=== PATIENT | female | born 1950 | race Caucasian/White ===

== ENCOUNTER 2017-09-30 08:31 | Day surgery (SDC) | payer MEDICARE, OTHER ==
[~2017-09-30 08:31] MED LIST: PROPOFOL 500 MG/50 ML EMU IV ONE
[2017-09-30 10:30] VITALS: TEMP 97.8
[2017-09-30 11:01] VITALS: RESP 20
[2017-09-30 11:13] VITALS: PULSE 59; O2SAT 97
[2017-09-30 11:18] VITALS: BP 122/72
== END 2017-09-30 11:25 | disposition home or self-care (01) | DRG 392 ==
LOC: SURG 08:31
PROVIDERS: ATTEND Internal Medicine Gastroenterology
DX: K21.9 Gastro-esophageal reflux disease without esophagitis (principal); Q39.9 Congenital malformation of esophagus, unspecified; R93.3 Abnormal findings on diagnostic imaging of other parts of digestive tract; K90.0 Celiac disease; R07.9 Chest pain, unspecified; R19.7 Diarrhea, unspecified; K22.2 Esophageal obstruction; K44.9 Diaphragmatic hernia without obstruction or gangrene; L53.8 Other specified erythematous conditions; K26.9 Duodenal ulcer, unspecified as acute or chronic, without hemorrhage or perforation; K29.50 Unspecified chronic gastritis without bleeding; K22.70 Barrett's esophagus without dysplasia
CPT/HCPCS: J2704

== ENCOUNTER 2017-12-12 10:21 | Emergency (ER) | payer MEDICARE, OTHER ==
[2017-12-12 10:29] VITALS: RESP 12; TEMP 97.6; O2SAT 100
[2017-12-12 13:33] VITALS: BP 174/84; PULSE 68
== END 2017-12-12 11:50 | disposition home or self-care (01) | DRG 149 ==
LOC: ED 10:21
DX: R42 Dizziness and giddiness (principal)
CPT/HCPCS: 70450; 93005; 99283; 99284

== ENCOUNTER 2018-01-02 04:06 | Emergency (ER) | payer MEDICARE, OTHER ==
[2018-01-02] MEDS ORDERED: NITROGLYCERIN 0.4 MG TAB SL PRN (04:08)
[2018-01-02] MEDS ORDERED: ASPIRIN 81 MG CHEWABLE CTB PO STA (04:08)
[2018-01-02] MEDS ORDERED: SODIUM CHLORIDE 0.9% FLUSH 10 ML SOL IV PRN (04:08)
[2018-01-02 04:38] LABS: BASOPHILS % (AUTO) 2 % (0-3); EOSINOPHILS % (AUTO) 6 % (0-9); HEMATOCRIT 41 % (35-47); HEMOGLOBIN 13.6 gm/dl (12.0-15.5); LYMPHOCYTES % (AUTO) 17.7 % (10-50); MEAN CORPUSCULAR HEMOGLOBIN 28.7 pg (27.0-32.0); MEAN CORPUSCULAR HGB CONC 32.9 gm/dl (32.0-36.0); MEAN CORPUSCULAR VOLUME 87 fL (81-99); NEUTROPHILS % (AUTO) 65.8 % (37-80)
[2018-01-02 04:39] VITALS: BP 172/77; PULSE 75; TEMP 97.8; O2SAT 99
[2018-01-02 04:57] LABS: BLOOD UREA NITROGEN 15 mg/dl (7-18); CALCIUM 8.8 mg/dl (8.5-10.1); CARBON DIOXIDE 26.9 mEq/L (21-32); CHLORIDE 102 mMol/L (98-107); CREATINE KINASE 90 U/L (26-192); CREATININE 0.96 mg/dl (0.60-1.00); GLUCOSE 119 mg/dl (74-106); POTASSIUM 3.1 mMol/L (3.5-5.1); SODIUM 140 mMol/L (136-145); TROP I < 0.017 ng/ml (0.000-0.056)
[2018-01-02] MEDS ORDERED: POTASSIUM CHLORIDE 10 MEQ TER PO ONE (05:38)
[2018-01-02] MEDS ORDERED: POTASSIUM CHLORIDE 10 MEQ TER ONE (05:40)
== END 2018-01-02 06:06 | disposition home or self-care (01) | DRG 312 ==
LOC: ED 04:06
DX: R55 Syncope and collapse (principal); E87.6 Hypokalemia
CPT/HCPCS: 80048; 82550; 84484; 85025; 93005; 99283; 99285; A9270-GY

== ENCOUNTER 2018-06-22 18:13 | Emergency (ER) | payer MEDICARE, OTHER ==
[2018-06-22] MEDS ORDERED: ALUMINUM/MAGNESIUM 30 ML SUS PO ONE (18:31)
[2018-06-22] MEDS ORDERED: LIDOCAINE HCL 2% (VISCOUS) 15 ML SOL MT ONE (18:31)
[2018-06-22] MEDS ORDERED: ALUMINUM/MAGNESIUM 30 ML SUS ONE (18:51)
[2018-06-22] MEDS ORDERED: LIDOCAINE HCL 2% (VISCOUS) 15 ML SOL ONE (18:51)
[2018-06-22 19:44] VITALS: TEMP 96.6
[2018-06-22 23:07] VITALS: O2SAT 98
[2018-06-22 23:10] VITALS: BP 139/63; PULSE 66; RESP 19
== END 2018-06-22 21:31 | disposition home or self-care (01) | DRG 392 ==
LOC: ED 18:13
DX: K21.9 Gastro-esophageal reflux disease without esophagitis (principal)
CPT/HCPCS: 36415; 84484; 93005; 99283; 99284; A9270-GY

== ENCOUNTER 2018-06-27 17:39 | Emergency (ER) | payer MEDICARE, OTHER ==
[2018-06-27 18:08] VITALS: TEMP 97.6
[2018-06-27 18:28] LABS: BASOPHILS % (AUTO) 1 % (0-3); EOSINOPHILS % (AUTO) 1 % (0-9); HEMATOCRIT 42 % (35-47); LYMPHOCYTES % (AUTO) 31.1 % (10-50); MEAN CORPUSCULAR HGB CONC 33.7 gm/dl (32.0-36.0); MEAN CORPUSCULAR VOLUME 86 fL (81-99); MONOCYTES % (AUTO) 8.1 % (0-12); NEUTROPHILS % (AUTO) 58.3 % (37-80)
[2018-06-27 18:42] LABS: ALBUMIN 3.5 gm/dl (3.4-5.0); BILIRUBIN,TOTAL 0.3 mg/dl (0.2-1.0); CALCIUM 9.1 mg/dl (8.5-10.1); CARBON DIOXIDE 23.2 mEq/L (21-32); CREATININE 1.26 mg/dl (0.60-1.00); POTASSIUM 4.3 mMol/L (3.5-5.1); TOTAL PROTEIN 7.1 gm/dl (6.4-8.2)
[2018-06-27 19:31] VITALS: RESP 18
[2018-06-27] MEDS ORDERED: ALUMINUM/MAGNESIUM 30 ML SUS PO PRN (20:30)
[2018-06-27] MEDS ORDERED: LIDOCAINE HCL 2% (VISCOUS) 15 ML SOL MT ONE (20:31)
[2018-06-27] MEDS ORDERED: ALUMINUM/MAGNESIUM 30 ML SUS ONE (20:33)
[2018-06-27] MEDS ORDERED: LIDOCAINE HCL 2% (VISCOUS) 15 ML SOL ONE (20:33)
[2018-06-27 23:59] VITALS: BP 159/72; PULSE 77; O2SAT 98
== END 2018-06-27 20:50 | disposition home or self-care (01) | DRG 392 ==
LOC: ED 17:39
DX: K20.9 Esophagitis, unspecified (principal); R06.02 Shortness of breath
CPT/HCPCS: 36415; 71275; 80053; 83880; 85025; 85378; 93005; 99283; 99284; Q9967; A9270-GY

== ENCOUNTER 2018-07-02 12:10 | Emergency (ER) | payer MEDICARE, OTHER ==
[2018-07-02 12:48] VITALS: TEMP 96.7
[2018-07-02 12:53] LABS: BASOPHILS % (AUTO) 1 % (0-3); EOSINOPHILS % (AUTO) 1 % (0-9); HEMATOCRIT 43 % (35-47); HEMOGLOBIN 14.5 gm/dl (12.0-15.5); LYMPHOCYTES % (AUTO) 27.5 % (10-50); MEAN CORPUSCULAR HEMOGLOBIN 28.8 pg (27.0-32.0); MEAN CORPUSCULAR HGB CONC 33.5 gm/dl (32.0-36.0); MEAN CORPUSCULAR VOLUME 86 fL (81-99); MONOCYTES % (AUTO) 6.9 % (0-12); NEUTROPHILS % (AUTO) 63.8 % (37-80)
[2018-07-02 13:06] LABS: INR 1.01 (0.86-1.12)
[2018-07-02 13:17] LABS: ALBUMIN 3.6 gm/dl (3.4-5.0); BILIRUBIN,TOTAL 0.7 mg/dl (0.2-1.0); CARBON DIOXIDE 20.4 mEq/L (21-32); CREATININE 1.5 mg/dl (0.60-1.00); POTASSIUM 3.3 mMol/L (3.5-5.1); TOTAL PROTEIN 7.2 gm/dl (6.4-8.2)
[2018-07-02 13:18] LABS: TROP I 0.027 ng/ml (0.000-0.056)
[2018-07-02 13:33] VITALS: RESP 16
[2018-07-02 15:44] VITALS: BP 138/60; PULSE 96; O2SAT 98
== END 2018-07-02 14:56 | disposition home or self-care (01) | DRG 149 ==
LOC: ED 12:10
DX: R42 Dizziness and giddiness (principal); R06.02 Shortness of breath
CPT/HCPCS: 36415; 71045; 80053; 82550; 83880; 84484; 85025; 85610; 85730; 93005; 99283; 99284

== ENCOUNTER 2018-09-05 10:57 | Emergency (ER) | payer MEDICARE, OTHER ==
[2018-09-05] MEDS ORDERED: NITROGLYCERIN 0.4 MG TAB SL PRN (11:03)
[2018-09-05] MEDS ORDERED: SODIUM CHLORIDE 0.9% FLUSH 10 ML SOL IV PRN (11:03)
[2018-09-05] MEDS ORDERED: ASPIRIN 81 MG CHEWABLE CTB PO STA (11:03)
[2018-09-05 11:07] LABS: BASOPHILS % (AUTO) 1 % (0-3); EOSINOPHILS % (AUTO) 2 % (0-9); HEMATOCRIT 40 % (35-47); HEMOGLOBIN 13.3 gm/dl (12.0-15.5); LYMPHOCYTES % (AUTO) 24.4 % (10-50); MEAN CORPUSCULAR HEMOGLOBIN 29.4 pg (27.0-32.0); MEAN CORPUSCULAR HGB CONC 33.3 gm/dl (32.0-36.0); MEAN CORPUSCULAR VOLUME 88 fL (81-99); MONOCYTES % (AUTO) 7.3 % (0-12); NEUTROPHILS % (AUTO) 65.4 % (37-80)
[2018-09-05 11:22] LABS: INR 0.99 (0.86-1.12)
[2018-09-05 11:24] LABS: BLOOD UREA NITROGEN 16 mg/dl (7-18); CALCIUM 9.3 mg/dl (8.5-10.1); CARBON DIOXIDE 27.5 mEq/L (21-32); CHLORIDE 102 mMol/L (98-107); CREATINE KINASE 61 U/L (26-192); CREATININE 0.88 mg/dl (0.60-1.00); GLUCOSE 102 mg/dl (74-106); POTASSIUM 3.1 mMol/L (3.5-5.1); SODIUM 139 mMol/L (136-145); TROP I < 0.017 ng/ml (0.000-0.056)
[2018-09-05] MEDS ORDERED: POTASSIUM CHLORIDE 2 MEQ/ML 40 MEQ, LIDOCAINE HCL 1% MDV 2 ML in SODIUM CHLORIDE 0.9% 5... IV ONE (11:45)
[2018-09-05] MEDS ORDERED: NITROGLYCERIN 0.4 MG TAB SL ONE (11:52)
[2018-09-05] MEDS ORDERED: POTASSIUM CHLORIDE 2 MEQ/ML SOL IV ONE (11:52)
[2018-09-05] MEDS ORDERED: ASPIRIN 81 MG CHEWABLE CTB ONE (11:53)
[2018-09-05] MEDS ORDERED: LIDOCAINE HCL 1% MPF 30 SOL ONE (11:56)
[2018-09-05] MEDS ORDERED: SODIUM CHLORIDE 0.9% 1000ML 1,000 ML IV SCH (12:00)
[2018-09-05] MEDS ORDERED: LIDOCAINE HCL 2% (VISCOUS) 15 ML SOL MT ONE (13:59)
[2018-09-05] MEDS ORDERED: ALUMINUM/MAGNESIUM 30 ML SUS PO ONE (13:59)
[2018-09-05] MEDS ORDERED: ALUMINUM/MAGNESIUM 30 ML SUS ONE (14:02)
[2018-09-05] MEDS ORDERED: LIDOCAINE HCL 2% (VISCOUS) 15 ML SOL ONE (14:02)
[2018-09-05 15:09] VITALS: TEMP 97.6
[2018-09-05 15:41] VITALS: PULSE 74
[2018-09-05 15:46] VITALS: BP 142/81
[2018-09-05 15:54] VITALS: RESP 14; O2SAT 99
== END 2018-09-05 16:23 | disposition home or self-care (01) | DRG 313 ==
LOC: ED 10:57
DX: R07.9 Chest pain, unspecified (principal); R06.02 Shortness of breath; R42 Dizziness and giddiness; R11.0 Nausea; I50.9 Heart failure, unspecified
CPT/HCPCS: 71045; 80048; 82550; 84484; 85025; 85610; 85730; 93005; 96365; 96366; 99283; 99285; J3480; A9270-GY; J2001